=== PATIENT | female | born 2000 | race African-American/Black ===

== ENCOUNTER 2019-02-20 19:34 | Emergency (ER) | payer SELFPAY ==
[~2019-02-20] VITALS: Ht 165.1 cm; Wt 87.0 kg
[2019-02-20 19:53] VITALS: BP 147/95
[2019-02-20] MEDS ORDERED: KETOROLAC 30MG/ML VIAL IM ONE (21:15)
== END 2019-02-20 22:00 | disposition home or self-care (01) ==
LOC: ER 20:05
DX: S16.1XXA Strain of muscle, fascia and tendon at neck level, initial encounter (principal); M25.511 Pain in right shoulder; V89.2XXA Person injured in unspecified motor-vehicle accident, traffic, initial encounter; Y93.89 Activity, other specified; Y92.89 Other specified places as the place of occurrence of the external cause; Y99.8 Other external cause status
CPT/HCPCS: 72040; 73030; 81025; 96372; 99283; J1885; Z7610